=== PATIENT | male | born 1950 | race Hispanic/Latino ===

== ENCOUNTER 2018-04-26 09:25 | Inpatient (IN) | payer MEDICARE, OTHER ==
[2018-04-26 09:32] VITALS: BMI 39.9
--- NOTE | 2018-04-26 09:44 | ED PDOC ---
Arrival/HPI - General Chief Complaint: Cough, Cold, Congestion Time Seen by Provider: 04/26/18 09:29 Historian: Patient - History of Present Illness Narrative History of Present Illness (Text): 04/26/18 09:41 A 67 year old male, whose past medical history includes bypass in 2013, presents to the emergency department with a complaint of 1 month duration shortness of breath. Patient was sent over by Dr. Saavedra and Dr. Mcduffie for further evaluation. Patient is complaining of a non- productive cough, increasing bilateral lower extremity edema. The patient is a non- smoker/ non- drinker. The patient denies fevers, chills, headache, dizziness, chest pain, sputum, dyspnea on exertion, abdominal pain, nausea, vomiting, diarrhea, back pain, neck pain, urinary/bowel changes, or any other complaint. PMD: Dr. Saavedra Piece Dyeing Machine Tender: Dr. Payne Time/Duration: Other (1 month) Symptom Onset: Sudden Symptom Course: Unchanged Activities at Onset: Rest, Light Context: Home Associated Symptoms (Text): 04/26/18 10:51 Approximately a one-month history of dyspnea at rest and dyspnea on exertion. Increasing pedal edema. Patient was seen by his PMD and directed to the emergency department. He is hypoxic. Improved with oxygen. Denies chest pain. History of a CABG. Past Medical History - Provider Review Nursing Documentation Reviewed: Yes - Infectious Disease Hx of Infectious Diseases: None - Cardiac Hx Hypertension: Yes Hx Pacemaker: No Other/Comment: open heart surgery. quadruple bypass - Neurological Hx Paralysis: No - Hematological/Oncological Hx Blood Transfusions: No Hx Blood Transfusion Reaction: No - Musculoskeletal/Rheumatological Hx Musculoskeletal Disorders: Yes (TENDONITIS BOTH FEET) - Psychiatric Hx Emotional Abuse: No Hx Physical Abuse: No Hx Substance Use: No - Surgical History Hx Coronary Artery Bypass Graft: Yes (x 20 January 2014) - Anesthesia Hx Anesthesia: Yes Hx Anesthesia Reactions: No Hx Malignant Hyperthermia: No - Suicidal Assessment Feels Threatened In Home Enviroment: No Family/Social History - Physician Review Nursing Documentation Reviewed: Yes Family/Social History: No Known Family HX Smoking Status: Never Smoked Hx Alcohol Use: No Hx Substance Use: No Allergies/Home Meds Allergies/Adverse Reactions: Allergies No Known Allergies Allergy (Verified 02/29/16 18:05) Home Medications: Home Meds Medication Instructions Recorded Confirmed Metoprolol Succinate [Metoprolol 50 mg PO DAILY 12/24/13 04/26/18 Succinate Xl] Simvastatin 40 mg PO DAILY 12/24/13 04/26/18 Aspirin [Ramah Aspirin] 81 mg PO DAILY 02/29/16 04/26/18 FLUoxetine [Prozac] 10 mg PO DAILY 02/29/16 04/26/18 Zolpidem [Ambien] 10 mg PO HS 02/29/16 04/26/18 Review of Systems - Physician Review All systems were reviewed & negative as marked: Yes - Review of Systems Constitutional: absent: Fevers Respiratory: SOB, Cough. absent: Sputum Cardiovascular: absent: Chest Pain, JAIME Gastrointestinal: absent: Abdominal Pain, Stool Changes, Diarrhea, Nausea, Vomiting Genitourinary Male: absent: Urinary Output Changes Musculoskeletal: absent: Back Pain, Neck Pain Neurological: absent: Headache, Dizziness Physical Exam Vital Signs Reviewed: Yes Vital Signs Temp Pulse Resp BP Pulse Ox 04/26/18 09:37 98.5 F 113 H 18 123/87 86 L Temperature: Afebrile Blood Pressure: Normal Pulse: Regular Respiratory Rate: Normal Appearance: Positive for: Well-Appearing, Non-Toxic, Comfortable Pain Distress: None Mental Status: Positive for: Alert and Oriented X 3 - Systems Exam Head: Present: Atraumatic, Normocephalic Pupils: Present: PERRL Extroacular Muscles: Present: EOMI Conjunctiva: Present: Normal Mouth: Present: Moist Mucous Membranes Pharnyx: No: ERYTHEMA, EXUDATE, TONSILS ENLARGED Neck: Present: Normal Range of Motion Respiratory/Chest: Present: Good Air Exchange, Decreased Breath Sounds (diminished lung sounds.), Tachypneic. No: Respiratory Distress, Accessory Muscle Use, Wheezes, Rales, Retracting, Rhonchi, Tender to Palpation Cardiovascular: Present: Regular Rate and Rhythm, Normal S1, S2. No: Murmurs Abdomen: No: Tenderness, Distention, Peritoneal Signs, Rebound, Guarding Back: Present: Normal Inspection Upper Extremity: Present: Normal Inspection. No: Cyanosis, Edema Lower Extremity: Present: Edema (3+ bilateral lower extremity edema. ) Neurological: Present: GCS=15, CN II-XII Intact, Speech Normal, Motor Func Grossly Intact Skin: Present: Warm, Dry, Normal Color. No: Rashes Psychiatric: Present: Alert, Oriented x 3, Normal Insight, Normal Concentration Medical Decision Making ED Course and Treatment: 04/26/18 09:46 Impression: A 67 year old male presents to the emergency department with a complaint of 1 month duration shortness of breath. Plan: -- EKG -- Chest X-ray -- Lower Extremity Ultrasound -- Labs -- Reassess and disposition Prior Visits: Notes and results from previous visits were reviewed. Progress Notes: 04/26/18 10:52 EKG shows normal sinus rhythm rate approximately 100 with a first-degree AV block and unifocal PVCs and no acute ST or T-wave changes Chest X-ray Dictator : Bashir Mack MD Report Date : 04/26/2018 10:34:01 IMPRESSION: No active disease. Severe cardiomegaly 04/26/18 11:20: Case discussed in detail with Dr. Abreu, who accepts patient for admission to [facility]. Lower Extremity Ultrasound Dictator : Eugenio Alejandro MD Report Date : 04/26/2018 12:00:40 IMPRESSION: No sonographic evidence for deep venous thrombosis in the visualized segments of both lower extremities. - RAD Interpretation Radiology Orders: Venous Doppler of bilateral lower extremities as read by the radiologist shows no DVT. X-ray chest one view shows cardiomegaly with hardware and no infiltrate effusion or pneumothorax. Bible Worker: Radiologist - Scribe Statement The provider has reviewed the documentation as recorded by the Scribe Eli Dumont Provider Scribe Attestation: All medical record entries made by the Scribe were at my direction and personally dictated by me. I have reviewed the chart and agree that the record accurately reflects my personal performance of the history, physical exam, medical decision making, and the department course for this patient. I have also personally directed, reviewed, and agree with the discharge instructions and disposition. Disposition/Present on Arrival - Present on Arrival Any Indicators Present on Arrival: No History of DVT/PE: No History of Uncontrolled Diabetes: No Urinary Catheter: No History of Decub. Ulcer: No History Surgical Site Infection Following: None - Disposition Have Diagnosis and Disposition been Completed?: Yes Diagnosis: Congestive heart failure, Pedal edema Disposition: HOSPITALIZED Disposition Time: 11:19 Patient Plan: Observation, Telemetry Patient Problems: Current Active Problems Problem Status Onset Congestive heart failure Acute Pedal edema Acute Condition: FAIR
[2018-04-26 09:55] LABS: BASO # 0.02 K/mm3 (0.0-2.0); BASO % 0.2 % (0.0-3.0); EOS # 0.1 (0.0-0.7); EOS % 1.6 % (1.5-5.0); HEMOGLOBIN 11.4 g/dL (14.0-18.0); LYMPH # 1.4 (1.2-3.4); LYMPH % 17.3 % (22.0-35.0); MEAN CELL VOLUME 77.2 fl (80.0-105.0); MEAN CORPUSCULAR HEMOGLOBIN 23.5 pg (25.0-35.0); MEAN CORPUSCULAR HGB CONC 30.4 g/dl (31.0-37.0); MEAN PLATELET VOLUME 11.3 fl (7.0-11.0); MONO # 0.5 (0.1-0.6); MONO % 6.5 % (1.0-6.0); RBC 4.86 10^6/uL (3.5-6.1); RED CELL DISTRIBUTION WIDTH 17.3 % (11.5-14.5); WHITE BLOOD COUNT 8.2 10^3/uL (4.5-11.0)
[2018-04-26 10:04] LABS: ALB/GLOB RATIO 1.1 (1.1-1.8)
[2018-04-26 10:07] LABS: INR 1.23; PARTIAL THROMBOPLASTIN TIME 34.6 Seconds (26.9-38.3); PROTHROMBIN TIME 13.9 SECONDS (9.4-12.5)
[2018-04-26 10:09] LABS: ALT/SGPT 25 U/L (7-56); AST/SGOT 40 U/L (17-59); BLOOD UREA NITROGEN 18 mg/dL (7-21); CALCIUM 8.8 mg/dL (8.4-10.5); GFR NON-AFRICAN AMERICAN > 60
[2018-04-26 10:17] LABS: B-TYPE NATRIURETIC PEPTIDE 1260 pg/mL (0-450); TROPONIN I 0.05 ng/mL
--- NOTE | 2018-04-26 10:37 | RAD ---
Date of service: 04/26/2018 HISTORY: sob COMPARISON: No prior. FINDINGS: LUNGS: No active pulmonary disease. PLEURA: No significant pleural effusion identified, no pneumothorax apparent. CARDIOVASCULAR: No aortic atherosclerotic calcification present. Moderate to severe cardiomegaly no pulmonary vascular congestion. OSSEOUS STRUCTURES: Sternal wires VISUALIZED UPPER ABDOMEN: Normal. OTHER FINDINGS: None. IMPRESSION: No active disease. Severe cardiomegaly
--- NOTE | 2018-04-26 11:15 | CP.PCM.HP ---
<Nuha Luna - Last Filed: 04/26/18 17:12> History of Present Illness - History of Present Illness History of Present Illness: 67yo male PMHx CAD s/p CABG 2013 [[facility]], CHF, HTN, Tendonitis, anxiety, depression presents for SOB for "weeks". Patient reports he first noticed this a while ago but was unable to have it addressed as he had to wait until his boss was on holiday. He reports feeling sob when ambulating 1/2 block and when he turns slightly when sitting. Patient denies any orthopnea and only uses 1 pillow to sleep. He also complained of associated b/l LE swelling and a nonproductive cough but cannot quantify for how many weeks, only stating that it had become worse recently. Patient denied any fever, chills, headache, dizziness, chest pain, palpitations, abd pain, nausea, vomiting, bowel/bladder complaints, pain in his legs bilaterally. PMD: Black Cardio: Reta- last seen last year Psych: Kvng- sees every 3 months PMHx: CAD s/p CABG 2013 [[facility]], CHF, HTN, Tendonitis, anxiety, depression PSurgHx: Quadruple bypass Jan 2014 Meds: pls see chart ALL: NKDA SocHx: lives alone; walks with no assistance; denies EtOH/tobacco/drug use FamHx: noncontributory Present on Admission - Present on Admission Any Indicators Present on Admission: No Review of Systems - Review of Systems All systems: reviewed and no additional remarkable complaints except Review of Systems: as per HPI Past Patient History - Infectious Disease Hx of Infectious Diseases: None - Past Social History Smoking Status: Never Smoked - CARDIAC Hx Hypertension: Yes Hx Pacemaker: No Other/Comment: open heart surgery. quadruple bypass - NEUROLOGICAL Hx Paralysis: No - HEMATOLOGICAL/ONCOLOGICAL Hx Blood Transfusions: No Hx Blood Transfusion Reaction: No - MUSCULOSKELETAL/RHEUMATOLOGICAL Hx Musculoskeletal Disorders: Yes (TENDONITIS BOTH FEET) - PSYCHIATRIC Hx Emotional Abuse: No Hx Physical Abuse: No Hx Substance Use: No - SURGICAL HISTORY Hx Coronary Artery Bypass Graft: Yes (x 20 January 2014) - ANESTHESIA Hx Anesthesia: Yes Hx Anesthesia Reactions: No Hx Malignant Hyperthermia: No Meds Allergies/Adverse Reactions: Allergies Allergy/AdvReac Type Severity Reaction Status Date / Time No Known Allergies Allergy Verified 12/13/16 18:05 Physical Exam - Constitutional Appears: Non-toxic, No Acute Distress - Head Exam Head Exam: ATRAUMATIC, NORMAL INSPECTION, NORMOCEPHALIC - Eye Exam Eye Exam: EOMI, Normal appearance, PERRL. absent: Conjunctival injection, Scleral icterus - ENT Exam ENT Exam: Mucous Membranes Moist - Neck Exam Neck exam: Positive for: Normal Inspection. Negative for: Lymphadenopathy - Respiratory Exam Respiratory Exam: Rales (trace b/l), NORMAL BREATHING PATTERN. absent: Accessory Muscle Use, Rhonchi, Wheezes, Respiratory Distress - Cardiovascular Exam Cardiovascular Exam: REGULAR RHYTHM, +S1, +S2 - GI/Abdominal Exam GI & Abdominal Exam: Normal Bowel Sounds, Soft. absent: Firm, Guarding, Tenderness - Extremities Exam Extremities exam: Positive for: normal capillary refill, pedal edema (2+ b/l LE), pedal pulses present - Back Exam Back exam: NORMAL INSPECTION. absent: rash noted, tenderness - Neurological Exam Neurological exam: Alert, CN II-XII Intact, Oriented x3 - Psychiatric Exam Psychiatric exam: Normal Affect, Normal Mood - Skin Skin Exam: Dry, Intact, Normal Color, Warm Results - Vital Signs Recent Vital Signs: Last Vital Signs Temp 98.5 F 04/26/18 09:37 Pulse 113 H 04/26/18 09:37 Resp 18 04/26/18 09:37 BP 123/87 04/26/18 09:37 Pulse Ox 86 L 04/26/18 09:37 - Labs Result Diagrams: 04/26/18 09:45 04/26/18 09:45 Labs: Laboratory Results - last 24 hr 04/26/18 04/26/18 04/26/18 09:45 09:45 09:45 WBC 8.2 RBC 4.86 Hgb 11.4 L Hct 37.5 L MCV 77.2 L MCH 23.5 L MCHC 30.4 L RDW 17.3 H Plt Count 221 MPV 11.3 H Neut % (Auto) 74.4 H Lymph % (Auto) 17.3 L [place] % (Auto) 6.5 H Eos % (Auto) 1.6 Baso % (Auto) 0.2 Lymph # (Auto) 1.4 [place] # (Auto) 0.5 Eos # (Auto) 0.1 Baso # (Auto) 0.02 Absolute Neuts (auto) 6.08 PT 13.9 H INR 1.23 APTT 34.6 Sodium 140 Potassium 3.7 Chloride 106 Carbon Dioxide 24 Anion Gap 13 BUN 18 Creatinine 1.2 Est GFR ( Amer) > 60 Est GFR (Non-Af Amer) > 60 Random Glucose 109 Calcium 8.8 Magnesium 1.9 Total Bilirubin 0.7 AST 40 ALT 25 Alkaline Phosphatase 78 Lactate Dehydrogenase 692 Total Creatine Kinase 138 Troponin I 0.05 NT-Pro-B Natriuret Pep 1260 H Total Protein 7.5 Albumin 4.0 Globulin 3.5 Albumin/Globulin Ratio 1.1 Assessment & Plan - Assessment and Plan (Free Text) Assessment: -Acute on chronic systolic CHF exacerbation [systolic vs diastolic] -CAD s/p CABG 2013 -HTN -Anxiety -Depression Plan: Patient admitted to TELE-Obs for further management. Cardio consulted and Echo ordered to f/u. Patient on diuretics lasix 40q8 at this time in light of fluid overload picture with elevated proBNP 1260. Troponin negative x 2. Continue ASA in light of CAD and patient on Lipitor 40. f/u AM labs and cardiac work up. Patient did not take any of his home medications so was given 1 dose Toprol xl which was continued. Start patient on low dose Lisinopril. Maintain normotension. Hydralazine prn for elevated BP. Continue home Prozac as mood stabilzer in light of anxiety and depression. DVT ppx in place. Monitor strict Is and os, daily weights, and patient on HHD with FCI and fluid restriction at this time. Will continue to monitor closely. Discussed with Dr. Lois Luna PGY3 <Ruben Abreu S - Last Filed: 04/29/18 21:01> Results - Vital Signs Recent Vital Signs: Last Vital Signs Temp 97.8 F 04/29/18 18:00 Pulse 69 04/29/18 18:00 Resp 18 04/29/18 18:00 BP 119/74 04/29/18 18:00 Pulse Ox 98 04/29/18 06:00 - Labs Result Diagrams: 04/29/18 06:45 04/29/18 06:45 Labs: Laboratory Results - last 24 hr 04/29/18 04/29/18 06:45 06:45 WBC 7.6 RBC 4.75 Hgb 10.9 L Hct 37.3 L MCV 78.5 L MCH 22.9 L MCHC 29.2 L RDW 17.1 H Plt Count 207 MPV 11.7 H Neut % (Auto) 73.0 H Lymph % (Auto) 18.7 L [place] % (Auto) 5.8 Eos % (Auto) 2.4 Baso % (Auto) 0.1 Lymph # (Auto) 1.4 [place] # (Auto) 0.4 Eos # (Auto) 0.2 Baso # (Auto) 0.01 Absolute Neuts (auto) 5.51 Sodium 139 Potassium 3.9 Chloride 103 Carbon Dioxide 32 Anion Gap 8 L BUN 23 H Creatinine 1.1 Est GFR ( Amer) > 60 Est GFR (Non-Af Amer) > 60 Random Glucose 85 Calcium 8.8 Total Bilirubin 0.4 AST 41 ALT 34 Alkaline Phosphatase 71 Total Protein 7.0 Albumin 3.6 Globulin 3.4 Albumin/Globulin Ratio 1.1 Assessment & Plan - Assessment and Plan (Free Text) Plan: Pt seen and examined by me. This is a late entry.I have reviewed the note of the medical research tech and I agree with it. I have discussed the assessment and plan with the resident. I have reviewed the medications and the last labs.Pt is on Lipitro for dyslipidemia. On Toprol for CAD. Pt is on Lasix for acute CHF due to systolic dysfunction. Pt will continue with Prozac for anxiety. Will need echo and cardio evaluation.
--- NOTE | 2018-04-26 12:03 | US ---
HISTORY: Leg pain and swelling. Evaluate for DVT PHYSICIAN(S): Eugenio Bustillo MD. TECHNIQUE: Duplex sonography and color-flow Doppler with graded compression were used to evaluate the deep venous systems of both lower extremities. The exam is somewhat limited by edema FINDINGS: The visualized deep venous systems of both lower extremities are sonographically normal and compressible. Normal wave forms and augmentation are seen. There is no sonographic evidence for deep venous thrombosis in the visualized segments of both lower extremities. IMPRESSION: No sonographic evidence for deep venous thrombosis in the visualized segments of both lower extremities.
[2018-04-26] MEDS ORDERED: Metoprolol Succinate 50 mg XL Tab PO ONE (14:16)
[2018-04-26] MEDS ORDERED: Albuterol-Ipratrop 3 mg / 0.5 (3 ml) UD IH PRN (17:22)
[2018-04-26 20:36] LABS: % IRON SATURATION 11 % (20-55); IRON 40 ug/dL (45-180); TOTAL IRON BINDING CAPACITY 374 ug/dL (261-462)
--- NOTE | 2018-04-26 23:09 | CARD ---
APPROVED REPORT Date of service: 04/26/2018 EKG Measurement Heart [id number] <Conclusion> Sinus rhythm with 1st degree AV block with frequent premature ventricular complexes Possible Left atrial enlargement Incomplete right bundle branch block Nonspecific T wave abnormality Abnormal ECG
--- NOTE | 2018-04-27 04:47 | CP.PCM.PN ---
Subjective - Date & Time of Evaluation Date of Evaluation: 04/27/18 Time of Evaluation: 04:46 - Subjective Subjective: Patient was seen at bedside. He had complained of insomnia. Has no complaints now. Medical record was reviewed. This 67 year old male was admitted with Has PMH of Objective - Vital Signs/Intake and Output Vital Signs (last 24 hours): Temp Pulse Resp BP Pulse Ox 98.1 F 64 20 125/91 H 99 04/27/18 00:01 04/27/18 01:45 04/27/18 00:01 04/27/18 00:42 04/27/18 00:01 Intake and Output: 04/26/18 04/27/18 18:59 06:59 Output Total 1000 Balance -1000 - Medications Medications: Current Medications Acetaminophen (Tylenol 325mg Tab) 650 mg PO Q4H PRN PRN Reason: Pain, moderate (4-7) Last Admin: 04/27/18 04:15 Dose: 650 mg Albuterol/Ipratropium (Duoneb 3 Mg/0.5 Mg (3 Ml) Ud) 3 ml IH [id number] PRN PRN Reason: Shortness of Breath Aspirin (Aspirin Chewable) 81 mg PO DAILY [facility] Atorvastatin Calcium (Lipitor) 40 mg PO DIN FUAD Fluoxetine HCl (Prozac) 10 mg PO DAILY [facility] Furosemide (Lasix) 40 mg IVP Q8H FUAD Last Admin: 04/27/18 00:42 Dose: 40 mg Heparin Sodium (Porcine) (Heparin) 5,000 units SC Q12 [facility]; Protocol Last Admin: 04/26/18 22:39 Dose: 5,000 units Hydralazine HCl (Apresoline) 10 mg IVP Q6 PRN PRN Reason: Systolic Blood Pressure Lisinopril (Zestril) 2.5 mg PO DAILY [facility] Metoprolol Succinate (Toprol Xl) 50 mg PO DAILY [facility] - Labs Labs: 04/26/18 09:45 04/26/18 09:45 PT 13.9 SECONDS (9.4-12.5) H 04/26/18 09:45 INR 1.23 04/26/18 09:45 APTT 34.6 Seconds (26.9-38.3) 04/26/18 09:45 - Constitutional Appears: Well, No Acute Distress - Head Exam Head Exam: ATRAUMATIC, NORMAL INSPECTION, NORMOCEPHALIC - Eye Exam Eye Exam: Normal appearance - ENT Exam ENT Exam: Normal Exam - Neck Exam Neck Exam: Normal Inspection - Respiratory Exam Respiratory Exam: NORMAL BREATHING PATTERN - Cardiovascular Exam Cardiovascular Exam: absent: JVD - GI/Abdominal Exam GI & Abdominal Exam: absent: Distended - Rectal Exam Rectal Exam: Deferred - Exam Additional comments: Deferred. - Extremities Exam Extremities Exam: Normal Inspection - Back Exam Back Exam: NORMAL INSPECTION - Neurological Exam Neurological Exam: Alert - Psychiatric Exam Psychiatric exam: Normal Affect, Normal Mood - Skin Skin Exam: Normal Color Assessment and Plan - Assessment and Plan (Free Text) Assessment: Insomnia Plan: Received Ambien 5 mg earlier which helped for sleep.
[2018-04-27 08:13] LABS: BASO # 0.02 K/mm3 (0.0-2.0); BASO % 0.2 % (0.0-3.0); EOS # 0.3 (0.0-0.7); EOS % 2.8 % (1.5-5.0); HEMOGLOBIN 11.5 g/dL (14.0-18.0); LYMPH # 1.5 (1.2-3.4); MEAN CORPUSCULAR HGB CONC 29.5 g/dl (31.0-37.0); MEAN PLATELET VOLUME 11.3 fl (7.0-11.0); MONO # 0.5 (0.1-0.6); MONO % 5.7 % (1.0-6.0); RED CELL DISTRIBUTION WIDTH 17.5 % (11.5-14.5)
[2018-04-27 08:30] LABS: ALB/GLOB RATIO 1.1 (1.1-1.8); CALCIUM 8.9 mg/dL (8.4-10.5)
[2018-04-27] MEDS ORDERED: Potassium Chloride 20 mEq ER Tab PO ONE (08:42)
[2018-04-27 08:50] LABS: FREE T4 1.32 ng/dL (0.78-2.19)
[2018-04-27] MEDS ORDERED: Metoprolol Succinate 50 mg XL Tab PO SCH (10:00)
--- NOTE | 2018-04-27 10:08 | PN ---
DATE: 04/27/2018 SUBJECTIVE: The patient says he is feeling better than yesterday. His shortness of breath is better. He has no complaints of any headaches or dizziness. PHYSICAL EXAMINATION: GENERAL: The patient is lying in bed, flat, comfortable. VITAL SIGNS: Temperature is 98, pulse is 61, blood pressure 116/74, respirations 20. HEENT: No oral lesion. Anicteric sclerae. Moist mucosa. NECK: No JVD, adenopathy, or thyromegaly. CARDIOVASCULAR: S1 and S2, regular. No murmurs, rubs, or gallops. LUNGS: Clear to auscultation bilaterally. No wheeze, rales, or rhonchi. ABDOMEN: Bowel sounds are positive, soft, nontender and nondistended. EXTREMITIES: No cyanosis, clubbing or edema. Lower extremity, there is 1+ edema in the lower extremity Doppler. There is no signs of DVT. LABORATORY DATA: White count is 9.0, hemoglobin 11.5, creatinine is 1.6, potassium is 3.5. ASSESSMENT: 1. Acute congestive heart failure secondary to systolic dysfunction. 2. Coronary artery disease. 3. Hypertension. 4. Anxiety. 5. Depression. 6. Lower extremity edema. 7. Obese with a body mass index of 39. 8. Anemia, iron deficiency. PLAN: The patient is currently comfortable. He has a potassium that is mildly low. His creatinine has increased. I will decrease his Lasix to once a day. The patient will also need a potassium replacement. His creatinine is elevated most likely secondary to the diuretic therapy that he has received. He is being followed by Dr. David. The patient does have anemia, iron studies show saturation is low, we will wait for the ferritin. The patient is on heparin for DVT prophylaxis. He is on Lipitor for dyslipidemia. The patient is receiving metoprolol. He is going to continue Lisinopril for hypertension and echo has been ordered to evaluate his ES. I also reviewed the H and P that was done yesterday by the resident. I went over the patient's plan of care. I do agree with H and P. The patient was examined by me today and evaluated with follow up. Ruben Abreu MD [facility] # [id number]
[2018-04-27 12:29] LABS: FERRITIN 34.9 ng/mL
[2018-04-27] MEDS ORDERED: Metoprolol Succinate 50 mg XL Tab PO ONE (13:45)
--- NOTE | 2018-04-27 20:47 | CARD ---
APPROVED REPORT Date of service: 04/27/2018 EXAM: Two-dimensional and M-mode echocardiogram with Doppler and color Doppler. INDICATION Dyspnea 2D DIMENSIONS Left Atrium (2D)4.1 (1.6-4.0cm)IVSd1.7 (0.7-1.1cm) Aortic Root (2D)4.2 (2.0-3.7cm)LVDd4.4 (3.9-5.9cm) PWd1.3 (0.7-1.1cm)LVDs4.2 (2.5-4.0cm) FS (%) 4.6 %LVEF (%)10.4 (>50%) M-Mode DIMENSIONS Aortic Cusp Exc.2.50 (1.5-2.0cm) Aortic Valve AoV Peak Ffzistje532.0cm/Zee Peak GR.5mmHgAI P 1/2 [id number] Mitral Valve MV E Lwnrflee56.9cm/s TDI Lateral E' Peak V7.75cm/sMedial E' Peak V2.41cm/sE/Lateral E'7.1 E/Medial E'22.8 Pulmonary Valve PV Peak Iaxdywbn70.9cm/sPV Peak Grad.3mmHg Tricuspid Valve TR Peak [id number]/sRAP FTECPBED7hcGyOT Peak Gr.17mmHg [id number] LEFT VENTRICLE The left ventricle is normal size. There is mild concentric left ventricular hypertrophy. The systolic function is severely impaired. There is global hypokinesis of the left ventricle. Transmitral Doppler flow pattern is Grade II-pseudonormal filling dynamics. No left ventricle thrombus noted on this study. RIGHT VENTRICLE The right ventricle is normal size. There is normal right ventricular wall thickness. RV Systolic function is severely reduced. ATRIA The left atrium is borderline dilated. The right atrium size is normal. AORTIC VALVE The aortic valve is not well visualized. There is mild aortic regurgitation. There is no aortic valvular stenosis. MITRAL VALVE The mitral valve is not well visualized. Mitral regurgitation is trace. GREAT VESSELS The aortic root is mildly to moderately enlarged. The IVC collapses <50% with inspiration. PERICARDIAL EFFUSION There is no pericardial effusion. <Conclusion> The left ventricle is normal size. There is mild concentric left ventricular hypertrophy. The systolic function is severely impaired. There is global hypokinesis of the left ventricle. RV Systolic function is severely reduced. There is mild aortic regurgitation. The aortic root is mildly to moderately enlarged.
--- NOTE | 2018-04-28 00:45 | CON ---
DATE OF CONSULTATION: 04/27/2018 REQUESTING PHYSICIAN: Dr. Abreu. REASON FOR CONSULTATION: Dyspnea and peripheral edema. HISTORY: This is a 67-year-old man with a history of coronary artery disease, status post prior bypass surgery as well as LV dysfunction, congestive heart failure, anxiety, depression, who had not been taking medications for some time. Over the past several weeks, he has noticed worsening dyspnea as well as leg edema. He was found to be in congestive heart failure and is admitted for treatment evaluation. He does have known coronary artery disease and underwent coronary bypass surgery 5 years ago at [facility]. He does have a history of hypertension. He denies compliance with sodium restriction. He had previously been on metoprolol, simvastatin and Prozac as well as aspirin. He is not compliant with most of these for some time. PAST MEDICAL HISTORY: Past history is notable for the problems mentioned above. He has also had history of tendonitis. SOCIAL HISTORY: He lives alone. He denies tobacco or alcohol abuse. FAMILY HISTORY: Unremarkable for premature heart disease. REVIEW OF SYSTEMS: Ten-point review of systems is otherwise unremarkable. PHYSICAL EXAMINATION: GENERAL: He is an overweight middle-aged man. VITAL SIGNS: His blood pressure is 110/76 with a pulse of 56, respirations are 16. He is afebrile. Rhythm is sinus with intermittent Mobitz I AV block. HEENT: Normocephalic, atraumatic. NECK: Supple. No JVD is noted. CHEST: Diminished breath sounds at the bases. HEART: PMI displaced laterally with soft tones noted. ABDOMEN: Soft, somewhat distended. Hepatomegaly is present. Bowel sounds present as well. EXTREMITIES: 2 to 3+ leg edema. DIAGNOSTIC DATA: Potassium 3.5, BUN and creatinine are 23 and 1.6. Sodium is 139, glucose is 104. White count 9, hemoglobin and hematocrit 11.5 and 39.7 with an MCV of 78, platelet count of 237,000. TSH is 2.78. Cholesterol is 165 with an HDL of 24, LDL 108, and triglycerides of 116. Chest x-ray reveals marked cardiac silhouette enlargement. Minimum congestive changes that are noted. Electrocardiogram reveals sinus rhythm with first-degree AV block and PVCs present and complete right bundle-branch block is noted as well. IMPRESSION: 1. Decompensating congestive heart failure, acute etiology uncertain, likely due to a systolic dysfunction given known left ventricular systolic impairment in the past. 2. Known coronary artery disease, status post coronary bypass surgery. 3. Rest of problems as noted. 4. Intermittent Mobitz I AV block. RECOMMENDATIONS: 1. IV diuretic therapy will be continued for now. Beta-franki therapy will be withheld given his Mobitz I AV block. 2. Statin therapy should continue. 3. Spironolactone will be added to his furosemide regimen as well. Close monitoring of his renal function will be planned. 4. Monitoring intake and output is advised as well. 5. An echocardiogram will be ordered and reviewed. Reevaluation for possible progressive ischemia and the underlying cause of worsening of LV dysfunction will be planned as well. Thank you for this consultation. We will be happy to follow him through his hospital course. Zaid David MD
[2018-04-28 07:57] LABS: BASO # 0.01 K/mm3 (0.0-2.0); BASO % 0.1 % (0.0-3.0); EOS # 0.2 (0.0-0.7); EOS % 2.8 % (1.5-5.0); HEMOGLOBIN 11.1 g/dL (14.0-18.0); LYMPH # 1.5 (1.2-3.4); LYMPH % 17.7 % (22.0-35.0); MEAN CELL VOLUME 77.8 fl (80.0-105.0); MEAN CORPUSCULAR HGB CONC 29.6 g/dl (31.0-37.0); MEAN PLATELET VOLUME 10.9 fl (7.0-11.0); MONO # 0.5 (0.1-0.6); MONO % 5.6 % (1.0-6.0); RBC 4.82 10^6/uL (3.5-6.1); RED CELL DISTRIBUTION WIDTH 17.2 % (11.5-14.5); WHITE BLOOD COUNT 8.6 10^3/uL (4.5-11.0)
[2018-04-28 08:16] LABS: ALB/GLOB RATIO 1.1 (1.1-1.8); ALBUMIN 3.6 g/dL (3.0-4.8); ALT/SGPT 30 U/L (7-56); AST/SGOT 39 U/L (17-59); BLOOD UREA NITROGEN 26 mg/dL (7-21); CALCIUM 8.6 mg/dL (8.4-10.5); GFR NON-AFRICAN AMERICAN 55
--- NOTE | 2018-04-28 11:48 | PN ---
DATE: 04/28/2018 SUBJECTIVE: The patient is seen lying in bed, on telemetry. He is currently comfortable. He denies any chest pain or dyspnea. CURRENT MEDICATIONS: Aldactone 25 mg b.i.d., aspirin once daily, albuterol inhaler, subcutaneous heparin, Lasix 40 mg IV daily, Lipitor 40 mg daily, Prozac, and Zestril 2.5 mg daily. OBJECTIVE: GENERAL: He is a middle-aged male, appears comfortable at rest. VITAL SIGNS: Blood pressure is 120/84. Pulse is 70, in sinus. Respirations are 16. He is afebrile. HEENT: No JVD. CHEST: Diminished breath sounds at bases. HEART: PMI displaced laterally with soft tones noted. ABDOMEN: Soft, nontender, and normoactive bowel sounds. EXTREMITIES: 1 to 2+ leg edema. DIAGNOSTIC DATA: Morning blood work is pending. IMPRESSION: 1. Recent acute decompensated congestive heart failure, acute on chronic, secondary to systolic dysfunction. 2. Coronary artery disease, status post prior bypass surgery, clinically stable. 3. Recent Mobitz I atrioventricular block as well as an episode of atrioventricular dissociation noted on the monitor yesterday. 4. Mild renal insufficiency, will need to monitor. RECOMMENDATIONS: IV Lasix will be continued for now. Oral spironolactone will be continued as well. Beta-franki and all negative chronotropic agents will be held given his evidence of conduction system disease. Should this persist or there be evidence of high-grade AV block, a permanent pacemaker implant may be necessary. An echocardiogram is pending and will need to be performed. Continue negative fluid balance as advised. We will be happy to follow along as needed. Zaid David MD
--- NOTE | 2018-04-28 14:25 | PN ---
DATE: 04/28/2018 SUBJECTIVE: The patient has no complaints of any chest pain or shortness of breath or headaches. PHYSICAL EXAMINATION: VITAL SIGNS: Temperature is 97.6, pulse of 71, blood pressure 119/84, respirations 18. GENERAL: The patient is lying in bed, flat, comfortable. HEENT: No oral lesion. Anicteric sclerae. Moist mucosa. NECK: No JVD, adenopathy, or thyromegaly. CARDIOVASCULAR: S1 and S2, regular. No murmurs, rubs, or gallops. LUNGS: Clear to auscultation bilaterally. No wheeze, rales, or rhonchi. ABDOMEN: Bowel sounds are positive, soft, nontender and nondistended. EXTREMITIES: Lower extremity 1+ edema. ASSESSMENT: 1. Acute congestive heart failure, secondary to systolic dysfunction. 2. Coronary artery disease. 3. Hypertension. 4. Anxiety. 5. Depression. 6. Lower extremity edema. 7. Obese with a body mass index of 39. 8. Anemia, iron deficiency type. PLAN: The patient's ferritin is 34.9. He has a saturation is 11%. His creatinine is 1.6. He had acute kidney injury secondary to being over diuresed. His creatinine has improved. He says he is breathing better. He is being followed by Cardiology. Beta blockers have been on hold because of the Mobitz I AV block. He has been started on Aldactone. He is on Lipitor for dyslipidemia. He is on Prozac for his anxiety and depression. He is receiving lisinopril for his CHF. He is on aspirin daily. The patient is going to need physical therapy. I will get a physical therapy evaluation. I will also see if he qualifies for the Transitional Care Unit to get some rehab. Ruben Abreu MD
[2018-04-29 07:14] LABS: BASO # 0.01 K/mm3 (0.0-2.0); BASO % 0.1 % (0.0-3.0); EOS # 0.2 (0.0-0.7); EOS % 2.4 % (1.5-5.0); HEMOGLOBIN 10.9 g/dL (14.0-18.0); LYMPH # 1.4 (1.2-3.4); LYMPH % 18.7 % (22.0-35.0); MEAN CELL VOLUME 78.5 fl (80.0-105.0); MEAN CORPUSCULAR HEMOGLOBIN 22.9 pg (25.0-35.0); MEAN CORPUSCULAR HGB CONC 29.2 g/dl (31.0-37.0); MEAN PLATELET VOLUME 11.7 fl (7.0-11.0); MONO # 0.4 (0.1-0.6); MONO % 5.8 % (1.0-6.0); RBC 4.75 10^6/uL (3.5-6.1); RED CELL DISTRIBUTION WIDTH 17.1 % (11.5-14.5); WHITE BLOOD COUNT 7.6 10^3/uL (4.5-11.0)
[2018-04-29 07:25] LABS: ALB/GLOB RATIO 1.1 (1.1-1.8); ALBUMIN 3.6 g/dL (3.0-4.8); ALT/SGPT 34 U/L (7-56); AST/SGOT 41 U/L (17-59); BLOOD UREA NITROGEN 23 mg/dL (7-21); CALCIUM 8.8 mg/dL (8.4-10.5); GFR NON-AFRICAN AMERICAN > 60
[2018-04-29 12:21] VITALS: RESP 18
--- NOTE | 2018-04-29 12:36 | CP.PCM.PN ---
<Modesto Smith - Last Filed: 04/29/18 12:26> Subjective - Date & Time of Evaluation Date of Evaluation: 04/29/18 Time of Evaluation: 12:26 - Subjective Subjective: PGY-[address] Abreu No acute events noted overnight. Patient denied shortness of breath, headache, chest pain, n/v, f/c. Objective - Vital Signs/Intake and Output Vital Signs (last 24 hours): Temp Pulse Resp BP Pulse Ox 98 F 69 18 115/75 98 04/29/18 12:00 04/29/18 12:00 04/29/18 12:00 04/29/18 12:00 04/29/18 06:00 Intake and Output: 04/29/18 04/29/18 06:59 18:59 Intake Total 120 Output Total 600 Balance -480 - Medications Medications: Current Medications Acetaminophen (Tylenol 325mg Tab) 650 mg PO Q4H PRN PRN Reason: Pain, moderate (4-7) Last Admin: 04/27/18 04:15 Dose: 650 mg Albuterol/Ipratropium (Duoneb 3 Mg/0.5 Mg (3 Ml) Ud) 3 ml IH [id number] PRN PRN Reason: Shortness of Breath Aspirin (Aspirin Chewable) 81 mg PO DAILY [facility] Last Admin: 04/29/18 10:41 Dose: 81 mg Atorvastatin Calcium (Lipitor) 80 mg PO DIN [facility] Fluoxetine HCl (Prozac) 10 mg PO DAILY [facility] Last Admin: 04/29/18 10:38 Dose: 10 mg Furosemide (Lasix) 40 mg IVP BID [facility] Heparin Sodium (Porcine) (Heparin) 5,000 units SC Q12 [facility]; Protocol Last Admin: 04/29/18 10:38 Dose: 5,000 units Lisinopril (Zestril) 2.5 mg PO DAILY [facility] Last Admin: 04/29/18 10:45 Dose: 2.5 mg Metoprolol Succinate (Toprol Xl) 50 mg PO DAILY [facility] Last Admin: 04/27/18 09:41 Dose: 50 mg Spironolactone (Aldactone) 25 mg PO BID [facility] Last Admin: 04/29/18 10:37 Dose: 25 mg - Labs Labs: 04/29/18 06:45 04/29/18 06:45 PT 13.9 SECONDS (9.4-12.5) H 04/26/18 09:45 INR 1.23 04/26/18 09:45 APTT 34.6 Seconds (26.9-38.3) 04/26/18 09:45 - Additional Findings Additional findings: - Constitutional Appears: Non-toxic, No Acute Distress - Head Exam Head Exam: ATRAUMATIC, NORMAL INSPECTION, NORMOCEPHALIC - Eye Exam Eye Exam: EOMI, Normal appearance, PERRL. absent: Conjunctival injection, Scleral icterus - ENT Exam ENT Exam: Mucous Membranes Moist - Neck Exam Neck exam: Positive for: Normal Inspection. Negative for: Lymphadenopathy - Respiratory Exam Respiratory Exam: Rales (trace b/l), NORMAL BREATHING PATTERN. absent: Accessory Muscle Use, Rhonchi, Wheezes, Respiratory Distress - Cardiovascular Exam Cardiovascular Exam: REGULAR RHYTHM, +S1, +S2 - GI/Abdominal Exam GI & Abdominal Exam: Normal Bowel Sounds, Soft. absent: Firm, Guarding, Tenderness - Extremities Exam Extremities exam: Positive for: normal capillary refill, pedal edema (2+ b/l LE), pedal pulses present - Back Exam Back exam: NORMAL INSPECTION. absent: rash noted, tenderness - Neurological Exam Neurological exam: Alert, CN II-XII Intact, Oriented x3 - Psychiatric Exam Psychiatric exam: Normal Affect, Normal Mood - Skin Skin Exam: Dry, Intact, Normal Color, Warm Assessment and Plan - Assessment and Plan (Free Text) Plan: -Acute on chronic systolic CHF exacerbation [systolic] -CAD s/p CABG 2013 -HTN -Anxiety -Depression -Obese with BMI of 39 -Anemia, iron deficiency type -BENNETT, resolved Plan: An echocardiogram was performed which showed severely reduced systolic ejection fraction. He is currently on lasix 40ivp bid and aldactone 25mg po bid with con tinuation of negative fluid balance. His beta blockers have been on hold because of Mobtiz I AV block. We increased his lipitor to 80mg po hs. He is on prozac to treat his anxiety and depression. Continue aspirin and lisinopril. He is waiting to be seen by physical therapy. Cardiology Dr David is on board who commented a permanent pacemaker implant may be necessary if his conduction defects persist. Patient had an BENNETT secondary to being over-diuresed which has now resolved. Discussed with Dr. Abreu <Ruben Abreu S - Last Filed: 04/29/18 20:51> Objective - Vital Signs/Intake and Output Vital Signs (last 24 hours): Temp Pulse Resp BP Pulse Ox 97.8 F 69 18 119/74 98 04/29/18 18:00 04/29/18 18:00 04/29/18 18:00 04/29/18 18:00 04/29/18 06:00 Intake and Output: 04/29/18 04/30/18 18:59 06:59 Intake Total 720 Output Total 1400 Balance -680 - Medications Medications: Current Medications Acetaminophen (Tylenol 325mg Tab) 650 mg PO Q4H PRN PRN Reason: Pain, moderate (4-7) Last Admin: 04/27/18 04:15 Dose: 650 mg Albuterol/Ipratropium (Duoneb 3 Mg/0.5 Mg (3 Ml) Ud) 3 ml IH [id number] PRN PRN Reason: Shortness of Breath Aspirin (Aspirin Chewable) 81 mg PO DAILY [facility] Last Admin: 04/29/18 10:41 Dose: 81 mg Atorvastatin Calcium (Lipitor) 80 mg PO DIN [facility] Last Admin: 04/29/18 17:49 Dose: 80 mg Fluoxetine HCl (Prozac) 10 mg PO DAILY [facility] Last Admin: 04/29/18 10:38 Dose: 10 mg Furosemide (Lasix) 40 mg IVP BID [facility] Last Admin: 04/29/18 17:47 Dose: 40 mg Heparin Sodium (Porcine) (Heparin) 5,000 units SC Q12 [facility]; Protocol Last Admin: 04/29/18 10:38 Dose: 5,000 units Lisinopril (Zestril) 2.5 mg PO DAILY [facility] Last Admin: 04/29/18 10:45 Dose: 2.5 mg Metoprolol Succinate (Toprol Xl) 50 mg PO DAILY [facility] Last Admin: 04/27/18 09:41 Dose: 50 mg Spironolactone (Aldactone) 25 mg PO BID [facility] Last Admin: 04/29/18 17:49 Dose: 25 mg - Labs Labs: 04/29/18 06:45 04/29/18 06:45 PT 13.9 SECONDS (9.4-12.5) H 04/26/18 09:45 INR 1.23 04/26/18 09:45 APTT 34.6 Seconds (26.9-38.3) 04/26/18 09:45 Assessment and Plan - Assessment and Plan (Free Text) Plan: Pt seen and examined by me. I have reviewed the note of the medical imaging technologist and I agree with it. I have discussed the assessment and plan with the resident. I have reviewed the medications and the last labs. Pt with acute CHF on Lasix. BENNETT has resolved. Pt has CAD and is on ASA. He was started on Aldactone. Prozac for anxiety and depression. I will increase the lasix. He did well with PT.
[2018-04-30 01:08] VITALS: O2SAT 100
--- NOTE | 2018-04-30 01:09 | PN ---
DATE: 04/29/2018 SUBJECTIVE: The patient is seen lying in bed on telemetry. He states his dyspnea is improved. His peripheral edema persist. CURRENT MEDICATIONS: Include Aldactone 25 mg b.i.d., aspirin, DuoNeb inhaler, subcutaneous heparin, Lasix 40 mg IV b.i.d., Lipitor 80 mg daily, Prozac, and lisinopril 2.5 mg daily. OBJECTIVE: GENERAL: He is overweight middle-aged male. VITAL SIGNS: Blood pressure is 116/70, pulse is 70 and sinus, respirations are 14, and he is afebrile. NECK: No JVD. CHEST: Diminished breath sounds at the bases. HEART: PMI is displaced laterally with soft tones noted. ABDOMEN: Soft and nontender with normoactive bowel sounds. EXTREMITIES: 2+ leg edema. DIAGNOSTIC DATA: Potassium 3.9 and BUN and creatinine 23/1.1. White count 7.6, hemoglobin and hematocrit 10.9 and 37.2, and platelet count of 207,000. IMPRESSION: 1. Decompensated congestive heart failure acute on chronic secondary to systolic dysfunction. 2. Coronary artery disease, status post remote bypass surgery, clinically stable. 3. Recent Mobitz I atrioventricular block as well as atrioventricular dissociation, no recurrence since discontinuation of beta-franki. 4. Mild renal insufficiency. RECOMMENDATIONS: His current medications will be continued for now. Compression stocking use will be utilized as well. Renal function will be monitored The need for compliance with medications was discussed with him again. We will continue to follow along as needed. Zaid David MD MTDD
[2018-04-30 06:52] VITALS: PULSE 84; TEMP 97.8
[2018-04-30 07:09] LABS: BASO # 0.01 K/mm3 (0.0-2.0); BASO % 0.1 % (0.0-3.0); EOS # 0.2 (0.0-0.7); EOS % 2.8 % (1.5-5.0); HEMOGLOBIN 10.8 g/dL (14.0-18.0); LYMPH # 1.2 (1.2-3.4); LYMPH % 16.7 % (22.0-35.0); MEAN CELL VOLUME 77.9 fl (80.0-105.0); MEAN CORPUSCULAR HGB CONC 29.5 g/dl (31.0-37.0); MEAN PLATELET VOLUME 11.2 fl (7.0-11.0); MONO # 0.5 (0.1-0.6); MONO % 6.7 % (1.0-6.0); RBC 4.7 10^6/uL (3.5-6.1); RED CELL DISTRIBUTION WIDTH 16.9 % (11.5-14.5); WHITE BLOOD COUNT 7.2 10^3/uL (4.5-11.0)
[2018-04-30 07:29] LABS: ALB/GLOB RATIO 1.1 (1.1-1.8); ALBUMIN 3.8 g/dL (3.0-4.8); ALT/SGPT 40 U/L (7-56); AST/SGOT 48 U/L (17-59); BLOOD UREA NITROGEN 22 mg/dL (7-21); CALCIUM 8.2 mg/dL (8.4-10.5); GFR NON-AFRICAN AMERICAN > 60
[2018-04-30 10:04] VITALS: BP 109/70
--- NOTE | 2018-04-30 11:55 | CP.PCM.DIS ---
<Modesto Smith R - Last Filed: 04/30/18 11:46> Provider - Provider Date of Admission: 04/27/18 20:04 Attending physician: Ruben Abreu MD Primary care physician: PMD: Dr Noel Consults: 04/26/18 12:44 Cardiology Consult Routine Comment: Consulting Provider: Zaid David Consulting Physician: Zaid David Reason for Consult: chf exacerbation 04/28/18 09:43 TCU [Evaluation for TRCU] Routine Comment: Physician Instructions: Reason For Exam: gait instability Time Spent in preparation of Discharge (in minutes): 42 Diagnosis - Discharge Diagnosis (1) Congestive heart failure Status: Acute Priority: High (2) Pedal edema Status: Acute Priority: High (3) Coronary arteriosclerosis in [place] artery Status: Acute Priority: High Hospital Course - Lab Results Lab Results: Most Recent Lab Values WBC 7.2 10^3/uL (4.5-11.0) 04/30/18 06:50 RBC 4.70 10^6/uL (3.5-6.1) 04/30/18 06:50 Hgb 10.8 g/dL (14.0-18.0) L 04/30/18 06:50 Hct 36.6 % (42.0-52.0) L 04/30/18 06:50 MCV 77.9 fl (80.0-105.0) L 04/30/18 06:50 MCH 23.0 pg (25.0-35.0) L 04/30/18 06:50 MCHC 29.5 g/dl (31.0-37.0) L 04/30/18 06:50 RDW 16.9 % (11.5-14.5) H 04/30/18 06:50 Plt Count 209 10^3/uL (120.0-450.0) 04/30/18 06:50 MPV 11.2 fl (7.0-11.0) H 04/30/18 06:50 Neut % (Auto) 73.7 % (50.0-68.0) H 04/30/18 06:50 Lymph % (Auto) 16.7 % (22.0-35.0) L 04/30/18 06:50 [place] % (Auto) 6.7 % (1.0-6.0) H 04/30/18 06:50 Eos % (Auto) 2.8 % (1.5-5.0) 04/30/18 06:50 Baso % (Auto) 0.1 % (0.0-3.0) 04/30/18 06:50 Lymph # (Auto) 1.2 (1.2-3.4) 04/30/18 06:50 [place] # (Auto) 0.5 (0.1-0.6) 04/30/18 06:50 Eos # (Auto) 0.2 (0.0-0.7) 04/30/18 06:50 Baso # (Auto) 0.01 K/mm3 (0.0-2.0) 04/30/18 06:50 Absolute Neuts (auto) 5.29 (1.4-6.5) 04/30/18 06:50 PT 13.9 SECONDS (9.4-12.5) H 04/26/18 09:45 INR 1.23 04/26/18 09:45 APTT 34.6 Seconds (26.9-38.3) 04/26/18 09:45 Sodium 139 mmol/L (132-148) 04/30/18 06:50 Potassium 3.4 mmol/L (3.6-5.0) L 04/30/18 06:50 Chloride 100 mmol/L (98-107) 04/30/18 06:50 Carbon Dioxide 32 mmol/L (21-33) 04/30/18 06:50 Anion Gap 10 (10-20) 04/30/18 06:50 BUN 22 mg/dL (7-21) H 04/30/18 06:50 Creatinine 1.2 mg/dl (0.8-1.5) 04/30/18 06:50 Est GFR ( Amer) > 60 04/30/18 06:50 Est GFR (Non-Af Amer) > 60 04/30/18 06:50 Random Glucose 84 mg/dL (70-110) 04/30/18 06:50 Hemoglobin A1c 5.7 % (4.2-6.5) 04/27/18 07:36 Calcium 8.2 mg/dL (8.4-10.5) L 04/30/18 06:50 Phosphorus 3.7 mg/dL (2.5-4.5) 04/27/18 07:36 Magnesium 2.1 mg/dL (1.7-2.2) 04/27/18 07:36 Iron 40 ug/dL (45-180) L 04/26/18 20:08 TIBC 374 ug/dL (261-462) 04/26/18 20:08 % Saturation 11 % (20-55) L 04/26/18 20:08 Transferrin 278.69 mg/dL (206-381) 04/26/18 20:08 Ferritin 34.9 ng/mL 04/26/18 20:08 Total Bilirubin 0.4 mg/dL (0.2-1.3) 04/30/18 06:50 AST 48 U/L (17-59) 04/30/18 06:50 ALT 40 U/L (7-56) 04/30/18 06:50 Alkaline Phosphatase 74 U/L (38-126) 04/30/18 06:50 Lactate Dehydrogenase 692 U/L (333-699) 04/26/18 09:45 Total Creatine Kinase 138 U/L (35-230) 04/26/18 09:45 Troponin I 0.04 ng/mL 04/26/18 20:08 NT-Pro-B Natriuret Pep 1260 pg/mL (0-450) H 04/26/18 09:45 Total Protein 7.2 g/dL (5.8-8.3) 04/30/18 06:50 Albumin 3.8 g/dL (3.0-4.8) 04/30/18 06:50 Globulin 3.4 gm/dL 04/30/18 06:50 Albumin/Globulin Ratio 1.1 (1.1-1.8) 04/30/18 06:50 Triglycerides 116 mg/dL (35-160) 04/27/18 07:36 Cholesterol 165 mg/dL (130-200) 04/27/18 07:36 LDL Cholesterol Direct 108 mg/dL (0-129) 04/27/18 07:36 HDL Cholesterol 24 mg/dL (29-60) L 04/27/18 07:36 Vitamin B12 261 pg/mL (239-931) 04/26/18 20:08 RBC Folate 752 ng/mL RBC (>280) 04/26/18 20:08 Free T4 1.32 ng/dL (0.78-2.19) 04/27/18 07:36 TSH 3rd Generation 2.78 mIU/mL (0.46-4.68) 04/27/18 07:36 Influenza Typ A,B (EIA) Negative for flu a/b (NEGATIVE) 04/26/18 11:45 - Hospital Course Hospital Course: 67yo male PMHx CAD s/p CABG 2013 [[facility]], CHF, HTN, Tendonitis, anxiety, depression presents for SOB for "weeks". Patient reports he first noticed this a while ago but was unable to have it addressed as he had to wait until his boss was on holiday. He reports feeling sob when ambulating 1/2 block and when he turns slightly when sitting. Patient denies any orthopnea and only uses 1 pillow to sleep. He also complained of associated b/l LE swelling and a nonproductive cough but cannot quantify for how many weeks, only stating that it had become worse recently. Patient denied any fever, chills, headache, dizziness, chest pain, palpitations, abd pain, nausea, vomiting, bowel/bladder complaints, pain in his legs bilaterally. PMD: Black Cardio: Reta- last seen last year Psych: Kvng- sees every 3 months PMHx: CAD s/p CABG 2013 [[facility]], CHF, HTN, Tendonitis, anxiety, depression PSurgHx: Quadruple bypass Jan 2014 Meds: pls see chart ALL: NKDA SocHx: lives alone; walks with no assistance; denies EtOH/tobacco/drug use FamHx: noncontributory HOSPITAL COURSE: Patient was found to have severe systolic type congestive heart failure as shown by echocardiogram. He was evaluated by video game designer Dr David. Patient was given lasix 40 ivp q12h and started on aldactone 25mg po bid and he began to have negative fluid balance with improvement in symptoms. He was also given aspirin and high intensity statin (lipitor 80mg po hs). He was also given lisinopril 5mg po qd. He beta franki was held because he was shown to have mobitz type I block as well as periods of AV dissociation - these patterns went away with discontinuation of the beta franki. Compression stockings were added by Dr David. He was given prozac for his anxiety/depression. He was also found to have iron deficiency anemia and discharged with ferrous sulfate. Detailed discharge instructions as well as scripts for medications were provided. Discharge Exam - Head Exam Head Exam: ATRAUMATIC, NORMAL INSPECTION, NORMOCEPHALIC - Additional Findings Additional findings: - Constitutional Appears: Non-toxic, No Acute Distress - Head Exam Head Exam: ATRAUMATIC, NORMAL INSPECTION, NORMOCEPHALIC - Eye Exam Eye Exam: EOMI, Normal appearance, PERRL. absent: Conjunctival injection, Scle ral icterus - ENT Exam ENT Exam: Mucous Membranes Moist - Neck Exam Neck exam: Positive for: Normal Inspection. Negative for: Lymphadenopathy - Respiratory Exam Respiratory Exam: Rales (trace b/l), NORMAL BREATHING PATTERN. absent: Accessory Muscle Use, Rhonchi, Wheezes, Respiratory Distress - Cardiovascular Exam Cardiovascular Exam: REGULAR RHYTHM, +S1, +S2 - GI/Abdominal Exam GI & Abdominal Exam: Normal Bowel Sounds, Soft. absent: Firm, Guarding, Tenderness - Extremities Exam Extremities exam: Positive for: normal capillary refill, pedal edema (2+ b/l LE) , pedal pulses present - Back Exam Back exam: NORMAL INSPECTION. absent: rash noted, tenderness - Neurological Exam Neurological exam: Alert, CN II-XII Intact, Oriented x3 - Psychiatric Exam Psychiatric exam: Normal Affect, Normal Mood - Skin Skin Exam: Dry, Intact, Normal Color, Warm Discharge Plan - Discharge Medications Prescriptions: RX: Spironolactone [Aldactone] 25 mg PO BID #60 tab Docusate [Colace] 100 mg PO BID PRN #60 cap PRN Reason: Constipation Compr.stocking,Thigh,Reg,Large [Compression Thigh Stocking] 1 each MC DAILY #2 each RX: Ferrous Sulfate [Feosol] 325 mg PO BID #60 tab RX: Atorvastatin [Lipitor] 80 mg PO DIN #60 tab RX: Aspirin [[place] Aspirin] 81 mg PO DAILY #30 tab.chew RX: Lisinopril [Zestril] 2.5 mg PO DAILY #60 tab - Follow Up Plan Condition: FAIR Disposition: HOME/ ROUTINE Instructions: Dependent Edema (DC), Heart Failure (DC) Additional Instructions: Please follow-up with your PMD, Dr Noel within 3-5 of discharge from hospital. Please follow-up with video game designer, Dr David within 3-5 days of discharge from hospital. You will be given a script for a 30 day supply of the following medications, it is advised you take these medications as instructed: 1. aspirin 81mg once a day 2. lisinopril 5mg once a day at 10AM 3. lipitor (atorvastatin) 80mg once a day before bedtime 4. lasix 40mg once a day at 2PM (this is a diuretic) 5. aldactone (spironolactone) 25mg once at 10AM and once at 6PM (this is a diuretic) 6. ferrous sulfate 325mg once at 10AM and once at 6PM 7. colace 100mg as needed for constipation (a side effect of ferrous sulfate can be constipation) 8. compression stockings to be worn on legs (as was done in the hospital) Please bring ALL your medications to your doctors, they will make adjustments as necessary. Please DO NOT take metoprolol (this is a heart medication) until you talk it over with a video game designer. If symptoms return please go to your nearest emergency department. Referrals: Blayne Noel MD [Staff Provider] - Zaid David MD [Staff Provider] - <Ruben Abreu - Last Filed: 04/30/18 14:25> Provider - Provider Date of Admission: 04/27/18 20:04 Attending physician: Ruben Abreu MD Consults: 04/26/18 12:44 Cardiology Consult Routine Comment: Consulting Provider: Zaid David Consulting Physician: Zaid David Reason for Consult: chf exacerbation 04/28/18 09:43 TCU [Evaluation for TRCU] Routine Comment: Physician Instructions: Reason For Exam: gait instability Hospital Course - Lab Results Lab Results: Most Recent Lab Values WBC 7.2 10^3/uL (4.5-11.0) 04/30/18 06:50 RBC 4.70 10^6/uL (3.5-6.1) 04/30/18 06:50 Hgb 10.8 g/dL (14.0-18.0) L 04/30/18 06:50 Hct 36.6 % (42.0-52.0) L 04/30/18 06:50 MCV 77.9 fl (80.0-105.0) L 04/30/18 06:50 MCH 23.0 pg (25.0-35.0) L 04/30/18 06:50 MCHC 29.5 g/dl (31.0-37.0) L 04/30/18 06:50 RDW 16.9 % (11.5-14.5) H 04/30/18 06:50 Plt Count 209 10^3/uL (120.0-450.0) 04/30/18 06:50 MPV 11.2 fl (7.0-11.0) H 04/30/18 06:50 Neut % (Auto) 73.7 % (50.0-68.0) H 04/30/18 06:50 Lymph % (Auto) 16.7 % (22.0-35.0) L 04/30/18 06:50 [place] % (Auto) 6.7 % (1.0-6.0) H 04/30/18 06:50 Eos % (Auto) 2.8 % (1.5-5.0) 04/30/18 06:50 Baso % (Auto) 0.1 % (0.0-3.0) 04/30/18 06:50 Lymph # (Auto) 1.2 (1.2-3.4) 04/30/18 06:50 [place] # (Auto) 0.5 (0.1-0.6) 04/30/18 06:50 Eos # (Auto) 0.2 (0.0-0.7) 04/30/18 06:50 Baso # (Auto) 0.01 K/mm3 (0.0-2.0) 04/30/18 06:50 Absolute Neuts (auto) 5.29 (1.4-6.5) 04/30/18 06:50 PT 13.9 SECONDS (9.4-12.5) H 04/26/18 09:45 INR 1.23 04/26/18 09:45 APTT 34.6 Seconds (26.9-38.3) 04/26/18 09:45 Sodium 139 mmol/L (132-148) 04/30/18 06:50 Potassium 3.4 mmol/L (3.6-5.0) L 04/30/18 06:50 Chloride 100 mmol/L (98-107) 04/30/18 06:50 Carbon Dioxide 32 mmol/L (21-33) 04/30/18 06:50 Anion Gap 10 (10-20) 04/30/18 06:50 BUN 22 mg/dL (7-21) H 04/30/18 06:50 Creatinine 1.2 mg/dl (0.8-1.5) 04/30/18 06:50 Est GFR ( Amer) > 60 04/30/18 06:50 Est GFR (Non-Af Amer) > 60 04/30/18 06:50 Random Glucose 84 mg/dL (70-110) 04/30/18 06:50 Hemoglobin A1c 5.7 % (4.2-6.5) 04/27/18 07:36 Calcium 8.2 mg/dL (8.4-10.5) L 04/30/18 06:50 Phosphorus 3.7 mg/dL (2.5-4.5) 04/27/18 07:36 Magnesium 2.1 mg/dL (1.7-2.2) 04/27/18 07:36 Iron 40 ug/dL (45-180) L 04/26/18 20:08 TIBC 374 ug/dL (261-462) 04/26/18 20:08 % Saturation 11 % (20-55) L 04/26/18 20:08 Transferrin 278.69 mg/dL (206-381) 04/26/18 20:08 Ferritin 34.9 ng/mL 04/26/18 20:08 Total Bilirubin 0.4 mg/dL (0.2-1.3) 04/30/18 06:50 AST 48 U/L (17-59) 04/30/18 06:50 ALT 40 U/L (7-56) 04/30/18 06:50 Alkaline Phosphatase 74 U/L (38-126) 04/30/18 06:50 Lactate Dehydrogenase 692 U/L (333-699) 04/26/18 09:45 Total Creatine Kinase 138 U/L (35-230) 04/26/18 09:45 Troponin I 0.04 ng/mL 04/26/18 20:08 NT-Pro-B Natriuret Pep 1260 pg/mL (0-450) H 04/26/18 09:45 Total Protein 7.2 g/dL (5.8-8.3) 04/30/18 06:50 Albumin 3.8 g/dL (3.0-4.8) 04/30/18 06:50 Globulin 3.4 gm/dL 04/30/18 06:50 Albumin/Globulin Ratio 1.1 (1.1-1.8) 04/30/18 06:50 Triglycerides 116 mg/dL (35-160) 04/27/18 07:36 Cholesterol 165 mg/dL (130-200) 04/27/18 07:36 LDL Cholesterol Direct 108 mg/dL (0-129) 04/27/18 07:36 HDL Cholesterol 24 mg/dL (29-60) L 04/27/18 07:36 Vitamin B12 261 pg/mL (239-931) 04/26/18 20:08 RBC Folate 752 ng/mL RBC (>280) 04/26/18 20:08 Free T4 1.32 ng/dL (0.78-2.19) 04/27/18 07:36 TSH 3rd Generation 2.78 mIU/mL (0.46-4.68) 04/27/18 07:36 Influenza Typ A,B (EIA) Negative for flu a/b (NEGATIVE) 04/26/18 11:45 - Hospital Course Hospital Course: Patient was seen and examined by me. I have reviewed the note of the biomedical specialist and have gone over the plan of care. I agree with the note. I have reviewed the medications and the last labs. Pt had acute CHF due to systolic dysfunction. He was given IV lasix and had improvement of his symptoms. He was seen by Dr Velázquez. His Lipitor was increased given his hx of CAD. He is on Lisinopriol and Aldactone for his CHF. He is on Prozac for his anxiety. Pt will be discharged and have f/u with PMD Dr Saavedra
== END 2018-04-30 14:48 | disposition home or self-care (01) | DRG 292 ==
LOC: ED 09:25 → ERH 11:16 → 2RSO 12:57 → OBSVTOIN 04-27 20:04
PROVIDERS: ADMIT Internal Medicine Nephrology; ATTEND Internal Medicine Nephrology
DX: I11.0 Hypertensive heart disease with heart failure (principal); N17.9 Acute kidney failure, unspecified; I45.89 Other specified conduction disorders; I50.23 Acute on chronic systolic (congestive) heart failure; I44.1 Atrioventricular block, second degree; I25.10 Atherosclerotic heart disease of native coronary artery without angina pectoris; F41.9 Anxiety disorder, unspecified; G47.00 Insomnia, unspecified; D50.9 Iron deficiency anemia, unspecified; F32.9 Major depressive disorder, single episode, unspecified; E78.5 Hyperlipidemia, unspecified; E66.9 Obesity, unspecified; Z68.39 Body mass index [BMI] 39.0-39.9, adult; Z95.1 Presence of aortocoronary bypass graft